=== PATIENT | female | born 1965 | race Caucasian/White ===

== ENCOUNTER 2021-05-24 09:33 | Day surgery (SDC) | payer OTHER ==
[2021-05-21 16:07] VITALS: BMI 21.8
[2021-05-24] MEDS ORDERED: VANCOMYCIN 1,000 MG VIAL (RESTRICTED TO ID ONLY) ONE ×2 (10:54→12:28)
[2021-05-24] MEDS ORDERED: ROPIVACAINE HCL/PF 100 MG/20 ML VIAL ONE (11:11)
[2021-05-24] MEDS ORDERED: MIDAZOLAM HCL 2 MG/2 ML SINGLE DOSE VIAL ONE (11:11)
[2021-05-24] MEDS ORDERED: BUPIVACAINE HCL/PF 0.5% (5 MG/ML) 30 ML VIAL IJ ONE (11:28)
[2021-05-24] MEDS ORDERED: BUPIVACAINE LIPOSOME/PF (EXPAREL) 266 MG/20 ML VIAL ONE (11:28)
[2021-05-24] MEDS ORDERED: TRANEXAMIC ACID 1000 MG/10 ML VIAL ONE (11:35)
[2021-05-24] MEDS ORDERED: BUPIVACAINE HCL/EPINEPHRINE/PF 30 ML VIAL IJ ONE (11:35)
[2021-05-24] MEDS ORDERED: ceFAZolin SODIUM 1 GM VIAL ONE ×2 (12:28→20:18)
[2021-05-24] MEDS ORDERED: BUPIVACAINE 0.25% /EPI 1:200,000 10 ML VIAL NR ONE ×2 (12:52→13:08)
[2021-05-24] MEDS ORDERED: ONDANSETRON 4 MG/2 ML VIAL ONE ×2 (12:54→15:47)
[2021-05-24] MEDS ORDERED: DEXAMETHASONE SOD PHOSPHATE 4 MG/1 ML VIAL ONE (12:54)
[2021-05-24] MEDS ORDERED: ROCURONIUM BROMIDE 50 MG/5 ML SYRINGE ONE (13:18)
[2021-05-24] MEDS ORDERED: ONDANSETRON 4 MG/2 ML VIAL IVPUSH PRN (16:34)
[2021-05-24] MEDS ORDERED: HYDROmorphone HCl 2 MG/ML VIAL IVPB PRN (16:40)
[2021-05-24] MEDS ORDERED: LACTATED RINGERS SOLUTION 1,000 ML IV SCH ×2 (16:45→17:00)
[2021-05-24] MEDS ORDERED: ACETAMINOPHEN INJECTION 100 ML IVPB ONE (16:53)
[2021-05-24] MEDS: ACETAMINOPHEN 1000 MG/100 ML BAG IVPB ONE (16:59)
[2021-05-24] MEDS ORDERED: DEXTROSE 5%-WATER - 50 ML IVPB ONE (20:19)
[2021-05-24] MEDS: CEFAZOLIN IVPB SCH (20:36)
[2021-05-24] MEDS: WATER IVPB SCH (20:36)
[2021-05-24] MEDS: DEXTROSE 5% IVPB SCH (20:36)
[2021-05-24] MEDS ORDERED: LETROZOLE 2.5 MG PO SCH (22:00)
[2021-05-24] MEDS ORDERED: LETROZOLE 2.5 MG TABLET (FP) PO SCH (22:00)
[2021-05-24] MEDS: oxyCODONE HCL 5 MG TABLET PO PRN (22:32)
[2021-05-24] MEDS: ACETAMINOPHEN 500 MG TABLET (FP) PO SCH (22:34)
[2021-05-25] MEDS ORDERED: VANCOMYCIN 1 GM in D5W (PRE-DOCKED) 1,000 MG/250 ML IVPB SCH (00:30)
[2021-05-25] MEDS ORDERED: ceFAZolin SODIUM 1 GM VIAL ONE ×2 (02:30→11:34)
[2021-05-25] MEDS ORDERED: DEXTROSE 5%-WATER - 50 ML IVPB ONE ×2 (02:30→11:34)
[2021-05-25] MEDS: CEFAZOLIN IVPB SCH ×2 (04:45→11:39)
[2021-05-25] MEDS: WATER IVPB SCH ×2 (04:45→11:39)
[2021-05-25] MEDS: DEXTROSE 5% IVPB SCH ×2 (04:45→11:39)
[2021-05-25] MEDS: ACETAMINOPHEN 500 MG TABLET (FP) PO SCH ×2 (04:45→11:10)
[2021-05-25] MEDS: oxyCODONE HCL 5 MG TABLET PO PRN ×4 (04:47→12:14)
[2021-05-25] MEDS: ACETAMINOPHEN 1000 MG/100 ML BAG IVPB ONE (08:00)
[2021-05-25] MEDS ORDERED: ASPIRIN 325 MG ENTERIC COATED TABLET (FP) PO SCH (10:00)
[2021-05-25 10:15] VITALS: BP 110/62; PULSE 79; TEMP 97.9
== END 2021-05-25 13:10 | disposition home or self-care (01) ==
LOC: FASUSAT 09:33 → FM/S 17:49 → FASUSAT 05-25 13:10
PROVIDERS: ATTEND Orthopaedic Surgery
PROC: 0LS40ZZ Reposition Left Upper Arm Tendon, Open Approach (ICD-10-PCS; 2021-05-24)
PROC: 0PSD04Z Reposition Left Humeral Head with Internal Fixation Device, Open Approach (ICD-10-PCS; principal; 2021-05-24 12:52)
DX: S42.202A Unspecified fracture of upper end of left humerus, initial encounter for closed fracture (principal); S46.112A Strain of muscle, fascia and tendon of long head of biceps, left arm, initial encounter; M65.812 Other synovitis and tenosynovitis, left shoulder; X58.XXXA Exposure to other specified factors, initial encounter; Y93.9 Activity, unspecified; Y92.9 Unspecified place or not applicable
CPT/HCPCS: 23430; 23615; C1713; 73030-TC-LT-FY; 73060-TC-LT-FY; 94760